=== PATIENT | female | born 1990 | race Caucasian/White ===

== ENCOUNTER 2017-03-05 19:33 | Emergency (ER) | payer BC ==
[2017-03-05] MEDS ORDERED: Ondansetron 8 MG Tab.DIS PO ONE (19:54)
[2017-03-05] MEDS ORDERED: Aluminum Hydroxide/Magnesium Hydroxide Susp 30 ML Cup PO STA (19:54)
--- NOTE | 2017-03-05 19:56 | EDM.PDOC ---
ED HPI GENERAL MEDICAL PROBLEM - General Chief Complaint: Abdominal Pain Stated Complaint: STOMACH PAIN Time Seen by Provider: 03/05/17 19:33 Source of Information: Reports: Patient, Family History Limitations: Reports: Language Barrier (pt is partially deaf) - History of Present Illness INITIAL COMMENTS - FREE TEXT/NARRATIVE: 26 y.o.w.f gave t twin brothers 2 months ago. She came to the ed due to acute onset of epigastric and suprapubic pain with vomiting. No trauma, No F/C. last BM was last night with loose stool. Pt is breast feeding. BP 144/91 pulse 67 Onset: Today Onset Date: 03/05/17 Onset Time: 06:00 Duration: Hour(s):, Intermittent Location: Reports: Abdomen Quality: Reports: Ache, Burning, Dull Severity: Mild Improves with: Reports: None Worsens with: Reports: Other (eating) Associated Symptoms: Reports: Nausea/Vomiting epigastric Pain Score (Numeric/FACES): 8 - Related Data Allergies Allergy/AdvReac Type Severity Reaction Status Date / Time No Known Allergies Allergy Verified 05/03/13 19:40 Home Meds: Home Meds NK [No Known Home Meds] 05/03/13 [History] Past Medical History - Past Health History Medical/Surgical History: Denies Medical/Surgical History Social & Family History - Tobacco Use Years of Tobacco use: 5 - Alcohol Use Days Per Week of Alcohol Use: 0 - Recreational Drug Use Recreational Drug Use: No ED ROS GENERAL - Review of Systems Review Of Systems: See Below Constitutional: Reports: No Symptoms HEENT: Reports: No Symptoms Respiratory: Reports: No Symptoms Cardiovascular: Reports: No Symptoms Endocrine: Reports: No Symptoms GI/Abdominal: Reports: Abdominal Pain : Reports: No Symptoms Musculoskeletal: Reports: No Symptoms Skin: Reports: No Symptoms Neurological: Reports: No Symptoms Psychiatric: Reports: No Symptoms Hematologic/Lymphatic: Reports: No Symptoms Immunologic: Reports: No Symptoms ED EXAM, GI/ABD - Physical Exam Exam: See Below Exam Limited By: Other (parially deaf) General Appearance: Alert, WD/WN, Mild Distress, Moderate Distress, Obese Eyes: Bilateral: Normal Appearance Ears: Normal External Exam Nose: Normal Inspection Throat/Mouth: Normal Inspection, Normal Lips Head: Atraumatic, Normocephalic Neck: Normal Inspection, Supple, Non-Tender Respiratory/Chest: No Respiratory Distress, Lungs Clear, Normal Breath Sounds Cardiovascular: Normal Peripheral Pulses, Regular Rate, Rhythm, No Edema, No JVD , No Murmur GI/Abdominal Exam: Tender (epigastric and suprapubic) (Female) Exam: Deferred Rectal (Female) Exam: Deferred Back Exam: Normal Inspection, Full Range of Motion Extremities: Normal Inspection, Normal Range of Motion, Non-Tender, No Pedal Edema Neurological: Alert, Oriented, CN II-XII Intact, Normal Cognition, Normal Gait, No Motor/Sensory Deficits Psychiatric: Normal Affect, Normal Mood Skin Exam: Warm, Dry, Intact, Normal Color, No Rash Lymphatic: No Adenopathy Course - Vital Signs Text/Narrative:: 26 y.o.w.f gave t twin brothers 2 months ago. She came to the ed due to acute onset of epigastric and suprapubic pain with vomiting. No trauma, No F/C. last BM was last night with loose stool. Pt is breast feeding. BP 144/91 pulse 67 PE: Morbid obese viola female, partially deaf, curtis pigastric and suprapubic pain Labs: elevated LFT (ALT, AST with ak=lk phos elevated DB 0.5 TB 1.0 Imaging: Cholelithiasis, CBD 8 mm, Possible early cholicystitis with gallbladder wall thickening Impression: Gastritis, Gallstones W/O cholecystitis (US ab. limited in am) Tx: GI cocktail, Zofran, NS, Dilaudid and Rocephine (cholecystitis) Reexam: Improved, pt was pain free Pt refused to be admitted because she has twin sons -2 months old-at home. She will be back in am for GB US Plan: D/C with instructions, back in am Last Recorded V/S: Last Vital Signs Temp 36.6 C 03/05/17 20:00 Pulse 67 03/05/17 20:00 Resp 17 03/05/17 20:00 BP 144/91 H 03/05/17 20:00 Pulse Ox 100 03/05/17 20:00 - Orders/Labs/Meds Orders: Active Orders 24 hr Category Date Time Status Abdomen Pelvis w Cont [CT] Stat Exams 03/05/17 21:46 Taken Saline Lock Insert [OM.PC] Routine Oth 03/05/17 21:46 Ordered Labs: Laboratory Tests 03/05/17 03/05/17 03/05/17 Range/Units 19:58 21:55 21:55 WBC 11.3 (4.5-12.0) X10-3/uL RBC 4.97 (3.23-5.20) x10(6)uL Hgb 13.8 (11.5-15.5) g/dL Hct 40.9 (30.0-51.3) % MCV 82.3 (80-96) fL MCH 27.7 (27.7-33.6) pg MCHC 33.6 (32.2-35.4) g/dL RDW 12.7 (11.5-15.5) % Plt Count 176 (125-369) X10(3)uL MPV 9.9 (7.4-10.4) fL Neut % (Auto) 84.8 H (46-82) % Lymph % (Auto) 9.3 L (13-37) % [place] % (Auto) 5.5 (4-12) % Eos % (Auto) 0 L (1.0-5.0) % Baso % (Auto) 0 (0-2) % Neut # (Auto) 9.6 H (1.6-8.3) # Lymph # (Auto) 1.1 (0.6-5.0) # [place] # (Auto) 0.6 (0.0-1.3) # Eos # (Auto) 0.0 (0.0-0.8) # Baso # (Auto) 0.0 (0.0-0.2) # Sodium 135 (135-145) mmol/L Potassium 4.0 (3.5-5.3) mmol/L Chloride 102 (100-110) mmol/L Carbon Dioxide 27 (23-29) mmol/L BUN 12 (5-20) mg/dL Creatinine 1.0 (0.6-1.3) mg/dL Est Cr Clr Drug Dosing TNP Estimated GFR (MDRD) > 60 (>60) BUN/Creatinine Ratio 12.0 (9-20) Glucose 116 (80-116) mg/dL Calcium 8.6 (8.6-10.2) mg/dL Total Bilirubin 1.0 (0.1-1.3) mg/dL Direct Bilirubin 0.5 H (0.1-0.2) mg/dL AST 369 H (5-27) IU/L ALT 159 H (14-26) IU/L Alkaline Phosphatase 174 H (56-112) IU/L Total Protein 7.7 (6.0-8.0) g/dL Albumin 4.1 (3.5-5.2) g/dL Amylase 57 (28-100) U/L HCG, Quant (2.0 - ) mIU/mL Urine Color Yellow (YELLOW) Urine Appearance Clear (CLEAR) Urine pH 6.0 (5.0-6.5) Ur Specific [place] 1.020 (1.010-1.025) Urine Protein Negative (NEGATIVE) mg/dL Urine Glucose (UA) Normal (NEGATIVE) mg/dL Urine Ketones Negative (NEGATIVE) mg/dL Urine Occult Blood Negative (NEGATIVE) Urine Nitrite Negative (NEGATIVE) Urine Bilirubin Negative (NEGATIVE) Urine Urobilinogen 1 H (NEGATIVE) mg/dL Ur Leukocyte Esterase Negative (NEGATIVE) Urine RBC 0-5 (0) Urine WBC 0-5 (0) Ur Squamous Epith Cells Few H (NS,R,O) Urine Bacteria Few H (NS) Urine Mucus Few H (NS) 03/05/17 Range/Units 21:55 WBC (4.5-12.0) X10-3/uL RBC (3.23-5.20) x10(6)uL Hgb (11.5-15.5) g/dL Hct (30.0-51.3) % MCV (80-96) fL MCH (27.7-33.6) pg MCHC (32.2-35.4) g/dL RDW (11.5-15.5) % Plt Count (125-369) X10(3)uL MPV (7.4-10.4) fL Neut % (Auto) (46-82) % Lymph % (Auto) (13-37) % [place] % (Auto) (4-12) % Eos % (Auto) (1.0-5.0) % Baso % (Auto) (0-2) % Neut # (Auto) (1.6-8.3) # Lymph # (Auto) (0.6-5.0) # [place] # (Auto) (0.0-1.3) # Eos # (Auto) (0.0-0.8) # Baso # (Auto) (0.0-0.2) # Sodium (135-145) mmol/L Potassium (3.5-5.3) mmol/L Chloride (100-110) mmol/L Carbon Dioxide (23-29) mmol/L BUN (5-20) mg/dL Creatinine (0.6-1.3) mg/dL Est Cr Clr Drug Dosing Estimated GFR (MDRD) (>60) BUN/Creatinine Ratio (9-20) Glucose (80-116) mg/dL Calcium (8.6-10.2) mg/dL Total Bilirubin (0.1-1.3) mg/dL Direct Bilirubin (0.1-0.2) mg/dL AST (5-27) IU/L ALT (14-26) IU/L Alkaline Phosphatase (56-112) IU/L Total Protein (6.0-8.0) g/dL Albumin (3.5-5.2) g/dL Amylase (28-100) U/L HCG, Quant 2 (2.0 - ) mIU/mL Urine Color (YELLOW) Urine Appearance (CLEAR) Urine pH (5.0-6.5) Ur Specific [place] (1.010-1.025) Urine Protein (NEGATIVE) mg/dL Urine Glucose (UA) (NEGATIVE) mg/dL Urine Ketones (NEGATIVE) mg/dL Urine Occult Blood (NEGATIVE) Urine Nitrite (NEGATIVE) Urine Bilirubin (NEGATIVE) Urine Urobilinogen (NEGATIVE) mg/dL Ur Leukocyte Esterase (NEGATIVE) Urine RBC (0) Urine WBC (0) Ur Squamous Epith Cells (NS,R,O) Urine Bacteria (NS) Urine Mucus (NS) Meds: Medications Discontinued Medications Generic Name Dose Route Start Last Admin Trade Name Freq PRN Reason Stop Dose Admin Hydrocodone Bitart/Acetaminophen 1 tab 03/05/17 20:46 03/05/17 20:52 [place] 325-5 Mg PO 03/05/17 20:47 1 tab ONETIME ONE Administration Al Hydroxide/Mg Hydroxide 30 ml 03/05/17 19:54 03/05/17 20:10 Mag-Al Susp PO 03/05/17 19:55 30 ml ONETIME STA Administration Ceftriaxone Sodium 1,000 mg 03/06/17 01:30 03/06/17 01:41 Rocephin IM 03/06/17 01:31 1,000 mg ONETIME ONE Administration Al Hydroxide/Mg Hydroxide 15 0 ml 03/05/17 20:46 03/05/17 20:52 ml/ Lidocaine HCl 15 ml PO 03/05/17 20:47 30 ml ONETIME STA Administration Hydromorphone HCl 0.5 mg 03/05/17 21:48 03/05/17 22:01 Dilaudid IVPUSH 03/05/17 21:49 0.5 mg ONETIME STA Administration Sodium Chloride 1,000 mls @ 999 mls/hr 03/05/17 21:49 03/05/17 22:00 Normal Saline IV 03/05/17 22:49 999 mls/hr .BOLUS ONE Administration Iopamidol 100 ml 03/05/17 22:38 03/05/17 23:42 Isovue-370 (76%) IV 03/05/17 22:39 100 ml . DIRECTED ONE Administration Ondansetron HCl 8 mg 03/05/17 19:54 03/05/17 20:10 Zofran Odt PO 03/05/17 19:55 8 mg ONETIME ONE Administration Sodium Chloride 10 ml 03/05/17 21:46 03/05/17 21:47 Saline Flush FLUSH 10 ml ASDIRECTED PRN Administration Keep Vein Open Departure - Departure Time of Disposition: 01:19 Disposition: Home, Self-Care 01 Condition: Good Clinical Impression: Cholecystitis [place] Qualifiers: Cholecystitis presence: with cholecystitis Cholecystitis acuity: acute and chronic - Discharge Information Referrals: Chet Raza MD [Primary Care Provider] - Forms: ED Department Discharge Additional Instructions: Please do not eat or drink till seen tomorrow fro [employer]. We will call you for an appointment in the morning. Please come back to the ed immediately if your symptoms get worse acutely. - My Orders Last 24 Hours: My Active Orders 03/05/17 21:46 Abdomen Pelvis w Cont [CT] Stat Saline Lock Insert [OM.PC] Routine - Assessment/Plan Last 24 Hours: My Active Orders 03/05/17 21:46 Abdomen Pelvis w Cont [CT] Stat Saline Lock Insert [OM.PC] Routine
[2017-03-05 20:10] VITALS: BP 144/91
[2017-03-05] MEDS ORDERED: Alum Hydroxide/Mag Hydroxide 15 ML, Lidocaine 2% 15 ML PO STA ×2 (20:46)
[2017-03-05] MEDS ORDERED: Acetaminophen/HYDROcodone 325-5 MG Tab PO ONE (20:46)
[2017-03-05] MEDS ORDERED: Sodium Chloride 0.9% 10 ML Syringe FLUSH PRN (21:46)
[2017-03-05] MEDS ORDERED: HYDROmorphone 2 MG/ML SDV IVPUSH STA (21:48)
[2017-03-05] MEDS ORDERED: Sodium Chloride 0.9% 1,000 ML IV ONE (21:49)
[2017-03-05] MEDS ORDERED: Iopamidol 755 Mg/ML 100 ML Bottle IV ONE (22:38)
[2017-03-06] MEDS ORDERED: cefTRIAXone 1,000 MG VIAL IM ONE (01:30)
== END 2017-03-06 01:50 | disposition home or self-care (01) ==
LOC: FB.ED 19:33
DX: K80.12 Calculus of gallbladder with acute and chronic cholecystitis without obstruction (principal); K29.70 Gastritis, unspecified, without bleeding; E66.01 Morbid (severe) obesity due to excess calories; R10.11 Right upper quadrant pain
CPT/HCPCS: 36415; 74177; 76705; 80048; 80076; 81001; 82150; 84702; 85025; 99283; A9270; J0696; J1170; J7040; J7050; Q9967

== ENCOUNTER 2023-04-17 12:24 | Emergency (ER) | payer BC ==
[2023-04-17 13:03] LABS: BASOPHILS PERCENT AUTO 0.4 % (0.2-1.5); EOSINOPHILS ABSOLUTE AUTO 0.1 x10-3/uL (0.0-0.8); EOSINOPHILS PERCENT AUTO 2.9 % (0.6-8.1); HEMOGLOBIN 12.5 g/dL (11.4-15.5); LYMPHOCYTES ABSOLUTE AUTO 1.3 x10-3/uL (1.0-4.4); LYMPHOCYTES PERCENT AUTO 24.9 % (18.4-52.1); MEAN CORPUSCULAR HEMOGLOBIN 25.3 pg (23.9-33.9); MEAN CORPUSCULAR HGB CONC 32.8 g/dL (31.9-34.8); MEAN CORPUSCULAR VOLUME 77.3 fL (76.7-100.5); MEAN PLATELET VOLUME 9.4 fL (7.1-12.4); MONOCYTES ABSOLUTE AUTO 0.4 x10-3/uL (0.3-1.0); MONOCYTES PERCENT AUTO 7.9 % (4.4-15.7); NEUTROPHILS ABSOLUTE AUTO 3.3 x10-3/uL (1.5-6.3); NEUTROPHILS PERCENT AUTO 63.9 % (30.8-76.2); PLATELET COUNT,PLT 160 x10(3)uL (151-488); RED BLOOD CELL COUNT 4.92 x10(6)uL (3.60-5.20); RED CELL DISTRIBUTION WIDTH 17.7 % (12.3-16.5); WHITE BLOOD CELL COUNT,WBC 5.1 x10-3/uL (3.0-10.3)
[2023-04-17 13:09] LABS: BLOOD UREA NITROGEN,BUN 15 mg/dL (7-18); BUN/CREATININE RATIO 13.6 (9-20); CALCIUM 9.4 mg/dL (8.6-10.2); CARBON DIOXIDE,CO2 30 mmol/L (21-32); CHLORIDE,CL 105 mmol/L (100-110); CREATININE 1.1 mg/dL (0.55-1.02); EST CRCL DRUG DOSING (CG) 73.38 mL/min; ESTIMATED GFR 68 mL/min (>60); GLUCOSE RANDOM 127 mg/dL (80-116); POTASSIUM,K 3.9 mmol/L (3.5-5.3); SODIUM,NA 142 mmol/L (135-145)
[2023-04-17 13:17] LABS: A/G RATIO 1.1; ALANINE AMINOTRANSFERASE,ALT 59 U/L (12-36); ALBUMIN 3.7 g/dL (3.5-5.2); ALKALINE PHOSPHATASE 57 IU/L (56-112); ASPARTATE AMNIOTRANSFERASE,AST 27 IU/L (5-25); BILIRUBIN TOTAL 0.4 mg/dL (0.1-1.3); PROTEIN TOTAL,TP 7.2 g/dL (6.0-8.0)
[2023-04-17 13:24] LABS: TROPONIN I < 4.0 pg/mL (4.0-60.3)
[2023-04-17 13:55] LABS: C-REACTIVE PROTEIN <0.05 mg/dL (<0.33)
[2023-04-17] MEDS: Labetalol 200 MG Tab PO ONE (17:23)
[2023-04-17] MEDS: Aspirin 81 MG Tab.EC PO ONE (17:24)
[2023-04-17 17:59] VITALS: BP 124/90; PULSE 79
== END 2023-04-17 17:34 | disposition home or self-care (01) ==
LOC: FB.ED 12:24
DX: R00.2 Palpitations (principal); R00.0 Tachycardia, unspecified; R55 Syncope and collapse; I44.0 Atrioventricular block, first degree; R79.89 Other specified abnormal findings of blood chemistry; Z79.899 Other long term (current) drug therapy
CPT/HCPCS: 36415; 71046; 80053; 84484; 85025; 85379; 86140; 93005; 93010; 99284; 99285; A9270-GY